=== PATIENT | female | born 1945 | race Caucasian/White ===

== ENCOUNTER → 2018-03-22 | Outpatient (CLI) | payer OTHER | LOC: BRMIMAGING 12:39 | PROVIDERS: ATTEND Internal Medicine | DX: Z13.820 Encounter for screening for osteoporosis (principal); M85.89 Other specified disorders of bone density and structure, multiple sites; Z78.0 Asymptomatic menopausal state ==

== ENCOUNTER → 2018-03-29 | Outpatient (CLI) | payer OTHER | LOC: BRMIMAGING 12:56 | PROVIDERS: ATTEND Internal Medicine | DX: Z12.31 Encounter for screening mammogram for malignant neoplasm of breast (principal) ==

== ENCOUNTER 2018-06-17 08:01 | Observation (INO) | payer OTHER ==
[2018-06-17] MEDS ORDERED: DIAZEPAM 5 MG TAB PO ONE (08:05)
[2018-06-17] MEDS ORDERED: diphenhydrAMINE 25 MG CAP PO ONE (08:05)
[2018-06-17] MEDS ORDERED: BACITRACIN IRRIGATION/NS 50,000 UNITS/1,000 ML BTL IRR ONE (08:05)
[2018-06-17] MEDS ORDERED: NS 1,000 ML IV ONE (08:05)
[2018-06-17] MEDS ORDERED: ceFAZolin 2 GM/DEXTROSE 100 ML IV ONE (08:05)
--- NOTE | 2018-06-17 08:24 | CPEKG ---
Heart Rate: 45 RR Interval: 1333 P-R Interval: 124 QRSD Interval: 92 QT Interval: 468 QTC Interval: 405 P [place]: -90 QRS [place]: 13 T Wave [place]: 51 EKG Severity - BORDERLINE ECG - EKG Impression: ECTOPIC ATRIAL BRADYCARDIA Electronically Signed By: Triny Gerber 17-Jun-2018 11:35:44
[2018-06-17 08:36] LABS: PLATELET COUNT 160 10^3/uL (150-400)
[2018-06-17 08:43] LABS: INR 0.99 (0.83-1.16); PROTIME(PATIENT) 13.3 SEC (12.0-15.0)
--- NOTE | 2018-06-17 09:22 | PDHPUP ---
History & Physical Update H&P update statement: This history and physical update is based on an assessment of the patient which was completed after admission or registration (within 24 hours), but prior to the surgery/procedure. H&P update: H&P reviewed & patient examined (for dual chamber pacemaker), no change in patient's condition since H&P completed
--- NOTE | 2018-06-17 09:24 | PDPROPOC ---
Sedation Plan of Care Sedation Plan of Care: vital signs stable, mental status noted, patient educated of risks, benefits, alternatives, patient can tolerate sedation ASA Classification: ASA 1 Planned drugs: fentanyl, midazolam Mallampati Score: Class 1 Mallampati Reference Image: Patient passed 3-3-2 rule?: Yes
[2018-06-17] MEDS ORDERED: MIDAZOLAM 2 MG/2 ML VIAL ONE ×3 (10:19→11:32)
[2018-06-17] MEDS ORDERED: LIDOCAINE 1% 300 MG/30 ML SDV ONE (10:19)
[2018-06-17] MEDS ORDERED: BUPIVACAINE 0.75% 10 ML SDV ONE (10:20)
[2018-06-17] MEDS ORDERED: fentaNYL 100 MCG/2 ML INJ ONE (10:20)
[2018-06-17] MEDS ORDERED: IOPAMIDOL (ISOVUE-300) 100 ML BTL ONE (10:20)
--- NOTE | 2018-06-17 11:58 | EPPROC ---
Electrophysiology Procedure Note: INDICATION: Symptomatic bradycardia PROCEDURE NOTE: Patient presented to the cardiac catheterization laboratory in a fasting, post absorptive state . EP RN administered sedation. The left infraclavicular area was prepped and draped in the usual sterile fashion. Lidocaine plus bupivacaine was used for local anesthesia. Left subclavian venography was performed by injection of iodinated contrast into the left antecubital vein. This was done to assure patency of the vein and also to assess for any anatomical aberrations. Using a combination of blunt and sharp dissection and electrocautery, the dissection was carried down to the prepectoral fascia. A pocket was made in this anatomical plane. All bleeding was controlled with electrocautery. The pocket was packed with gauze soaked in antibiotic solution. Fluoroscopy was utilized during the entire procedure for venous access and placement of the leads. Using a direct stick technique the left extrathoracic axillary vein was accessed with 2 sticks using the modified Seldinger technique. Placement of the guidewires into the venous system was confirmed by low-pressure blood return and also by visualizing the guidewires advancing into the inferior vena cava. A purse string suture was applied around the guidewires. Two #7 [place] sheaths were advanced under fluoroscopic guidance over the guidewire. An active fixation ventricular lead was advanced into the right ventricular apex and screwed in place. An active fixation atrial lead was advanced into the right atrial appendage and screwed in place. The peel away sheaths were removed. Pacing thresholds, sensing parameters and lead impedances were measured. There was no diaphragmatic stimulation at maximum output. The leads were sutured to the prepectoral fascia with 3 nonabsorbable sutures each. The pocket was again inspected for any bleeding. The leads were attached to the pacemaker securely. The pacemaker was inserted into the pocket and secured in place with a nonabsorbable suture. Fluoroscopy was performed in AMADO and BETI planes to verify right-sided placement of the leads. Also fluoroscopy of the pacemaker pocket was performed. The pacemaker pocket was closed in 3 layers with absorbable monocryl sutures and tamir. Appropriate dressing was applied. The patient left the cardiac catheterization laboratory in stable condition. Serial Numbers: 1. Device: SJM Assurity 2272 SN [id number] 2. Atrial Lead: SJM Tendril 46 SN [id number] 3. Ventricular Lead: SJM Tendril 52 SN [id number] Stimulation Thresholds & Impedance Measurements: 1. Atrial Lead P 1.6 mV 475 ohm 0.6 V 0.5 ms 2. Ventricular Lead R 17.7 mV 616 ohm 0.6 V 0.5 ms Casey Pacing Parameters 1. Pacing mode: DDDR 2. Lower rate: 60ppm 3. Upper tracking rate: 130 ppm 4. Upper sensor rate: 130 ppm Patient Problems: Problems Problem Status Onset Bradycardia Acute
--- NOTE | 2018-06-17 13:03 | CPEKG ---
Heart Rate: 60 RR Interval: 1000 P-R Interval: 176 QRSD Interval: 86 QT Interval: 440 QTC Interval: 440 QRS [place]: 17 T Wave [place]: -7 EKG Severity - ABNORMAL ECG - EKG Impression: ATRIAL-PACED RHYTHM EKG Impression: BORDERLINE T ABNORMALITIES, INFERIOR LEADS Electronically Signed By: Triny Gerber 17-Jun-2018 17:11:13
[2018-06-17] MEDS: ACETAMINOPHEN 325 MG TAB PO PRN ×2 (15:01→20:24)
[2018-06-18 04:59] LABS: PLATELET COUNT 145 10^3/uL (150-400)
[2018-06-18] MEDS ORDERED: amLODIPine BESYLATE 5 MG TAB PO SCH (09:00)
[2018-06-18] MEDS ORDERED: CHOLECALCIFEROL VIT D3 1,000 UNITS TAB PO SCH (09:00)
[2018-06-18] MEDS ORDERED: FLUoxetine 20 MG CAP PO SCH (09:00)
[2018-06-18] MEDS ORDERED: ASPIRIN 81 MG CHEWABLE TAB PO SCH (09:00)
[2018-06-18] MEDS ORDERED: ATORVASTATIN CALCIUM 20 MG TAB PO SCH (09:00)
--- NOTE | 2018-06-18 09:18 | CPEKG ---
Heart Rate: 63 RR Interval: 952 P-R Interval: 164 QRSD Interval: 82 QT Interval: 400 QTC Interval: 410 QRS [place]: 13 T Wave [place]: 17 EKG Severity - ABNORMAL ECG - EKG Impression: ATRIAL-PACED RHYTHM EKG Impression: BORDERLINE INFERIOR Q WAVES Electronically Signed By: Triny Gerber 18-Jun-2018 11:55:22
[2018-06-18 12:04] VITALS: BP 165/83
--- NOTE | 2018-06-18 14:53 | ASMTLACE ---
JENNIFER Acuity / Level of Answers: No Care: Did the patient have an inpatient admission? Comorbidities - select Answers: Other Notes: HTN; HLD all that apply # of Emergency department Answers: 0 visits in the last 6 months Social determinants Answers: Mental health diagnosis (anxiety, depression, pers onality disorders, etc.) Score: 4 Date Signed: 06/18/2018 01:15 PM Electronically Signed By:Karrie Balderrama RN
--- NOTE | 2018-06-18 14:53 | ASMTCMCOM ---
CM Note CM Note Notes: Chart reviewed. Patient medically cleared for discharge to home. No needs identified. CM available should needs arise. Plan: home with no services. Date Signed: 06/18/2018 01:20 PM Electronically Signed By:Karrie Balderrama RN
--- NOTE | 2018-06-18 16:02 | GDS ---
[f rep st] DISCHARGE SUMMARY ADMISSION DIAGNOSES: 1. Chronotropic incompetency. 2. Symptomatic bradycardia. 3. Hypertension. 4. Hyperlipidemia. DISCHARGE DIAGNOSES: 1. Symptomatic bradycardia. 2. Chronotropic incompetency. 3. Status post dual-chamber [facility] pacemaker implantation. 4. Hypertension. 5. Hyperlipidemia. PROCEDURES: Performed during hospitalization: 1. Electrocardiogram. 2. Permanent pacemaker implantation, [employer] device with right atrial and right ventricular [place] e lead implantation. 3. Chest x-ray. 4. Pacemaker interrogation. BRIEF HISTORY: Please see H and P: Ms. Serrano is a 73-year-old female who has been seen initially by her primary housing management representative, Dr. Melara, for evaluation of fatigue and chronotropic incompetence. She h ad recently underwent Holter monitoring, noticing a minimum heart rate of 37 beats per minute with av erage heart rate of 43 beats per minute. She was evaluated by Dr. Daly and felt to be an appropriate candidate to undergo permanent pacemaker implantation. HOSPITAL COURSE: Patient admitted through [facility], prepped for procedure, and taken to the Electrophysio logy Suite where Dr. Daly successfully implanted a dual-chamber [facility] [facility] pacemaker with right atrial a nd ventricular leads. No apparent complications. The patient was taken back to [facility] and ultimately t o the PCU for overnight observation. There she has been A paced with intrinsic ventricular response. She has had no chest pain or pressure symptoms suggesting ischemia. She has been up and walking th e unit without symptoms. She has been noted to be mildly hypertensive with systolic blood pressures up into the 160s. She does report her fatigue symptoms have improved significantly. PHYSICAL EXAMINATION: GENERAL: On exam done today, a short-statured, well-groomed, mildly obese [facility] female. She is alert and oriented to person, place, time, and situation and appears to be und er no acute distress. VITAL SIGNS: Current vital signs show a blood pressure of 165/83, heart rate of 65, A paced with intrinsic ventricular response, respirations 16, saturating 94% on room air, temp erature 36.9 degrees Celsius. HEENT: Head is normocephalic. Lips and tongue are pink and moist wit h no signs of cyanosis. Conjunctivae pink. NECK: Trachea is midline. +2 carotid pulses bilateral. No auscultated bruits, no jugular vein distention. RESPIRATORY: Lungs are clear to auscultation. No rhonchi, rales or wheezes. No accessory muscle use, no intercostal muscle retraction noted. CAR DIAC: Regular rate, regular rhythm, S1, S2, no S3, S4. No gallops, rubs or murmurs noted. ABDOMEN: Soft, nontender. Bowel sounds x4 quadrants. No organomegaly. No palpable masses. SKIN: [place], warm, dry. EXTREMITIES: No cyanosis, no clubbing, no peripheral edema. Pacemaker implantation site, left anterior chest, distal to clavicle incision intact with tamir. N o redness, swelling, drainage, ecchymosis or hematoma. Dressing change done at this time. LABORATORY STUDIES: Laboratory studies drawn today show WBC of 5.59, hemoglobin 15.4, hematocrit 44. 9, platelet count 145. Sodium 139, potassium 4.8, chloride 105, CO2 24, BUN 12, creatinine 0.6, gluc ose 81, calcium 8.5. STUDIES: Pacemaker implantation as mentioned above. Chest x-ray done this morning showing no acute cardiopulmonary process. No delayed pneumothorax. Device interrogation by [facility] [facility] rep showing device functioning within normal limits. Electrocardiogram done this morning showing A paced with intrinsic rhythm. Noted Q-waves in lead III . No significant ST or T wave abnormalities. DISCHARGE DISPOSITION: Patient will be discharged home in stable condition. She is under activity r estriction, not lifting left arm higher than head or lifting more than 10 pounds with the left arm fo r the next 6 weeks. DISCHARGE MEDICATIONS: Please see discharge medication reconciliation sheet. Note, upon discharge I have increased her amlodipine to 10 mg p.o. daily due to her elevated blood pressure. She has been asked to continue to keep a home BP log, monitor blood pressure on a daily basis, and bring it back t o her next office visit with Dr. Melara. No change to the rest of her home medications. DISCHARGE INSTRUCTIONS: Post pacemaker implantation discharge instructions. Went over with the daniel ent and her , including monitoring for signs of infection, bleeding precautions, activity rest rictions, and medication compliance. The patient does have a device and wound check scheduled in 1 w alutiiq's time, and will follow up with Dr. Daly in 1 month. At the time of discharge, both patient and sylvia monzonband verbalized understanding of all instructions and have no questions or concerns. The patient h as been told that if any problems or concerns post discharge, they are to notify our office or return to the hospital. Total time spent on discharge, greater than 30 minutes. /[id number]/MODL
[2018-06-19] MEDS ORDERED: VALSARTAN 80 MG TAB PO SCH (09:00)
== END 2018-06-18 14:22 | disposition home or self-care (01) ==
LOC: FCATH 08:01 → F2W 11:58
PROVIDERS: ADMIT Internal Medicine Cardiovascular Disease; ATTEND Internal Medicine Cardiovascular Disease
PROC: 0JH606Z Insertion of Pacemaker, Dual Chamber into Chest Subcutaneous Tissue and Fascia, Open Approach (ICD-10-PCS; principal; 2018-06-17)
PROC: 02H63JZ Insertion of Pacemaker Lead into Right Atrium, Percutaneous Approach (ICD-10-PCS; principal; 2018-06-17)
PROC: 02HK3JZ Insertion of Pacemaker Lead into Right Ventricle, Percutaneous Approach (ICD-10-PCS; principal; 2018-06-17)
DX: I49.5 Sick sinus syndrome (principal); I45.89 Other specified conduction disorders; I10 Essential (primary) hypertension; E78.5 Hyperlipidemia, unspecified
CPT/HCPCS: 33208; 71045; 71046; 93005; C1785; C1898; G0378; J0690; J2250; J3010; Q9967

== ENCOUNTER 2019-01-08 06:48 | Day surgery (SDC) | payer OTHER ==
[2019-01-08] MEDS ORDERED: NS 1,000 ML IV ONE (06:50)
[2019-01-08 07:28] LABS: PLATELET COUNT 182 10^3/uL (150-400)
[2019-01-08 07:45] LABS: INR 0.95 (0.83-1.16); PROTIME(PATIENT) 12.9 SEC (12.0-15.0)
--- NOTE | 2019-01-08 07:48 | CPEKG ---
Test Reason : OPEN Blood Pressure : / mmHG Vent. Rate : 060 BPM Atrial Rate : 060 BPM P-R Int : 157 ms QRS Dur : 085 ms QT Int : 399 ms P-R-T Axes : 086 025 052 degrees QTc Int : 399 ms Atrial-paced rhythm Confirmed by Caleb Pan ([id number]) on 01/08/2019 7:47:46 AM Referred By: Son Daly Confirmed By:Caleb Pan
[2019-01-08] MEDS ORDERED: BUPIVACAINE 0.75% 10 ML SDV ONE (07:56)
[2019-01-08] MEDS ORDERED: LIDOCAINE 1% 300 MG/30 ML SDV ONE (07:56)
[2019-01-08] MEDS ORDERED: ISOPROTERENOL HCL/D5W 0.2 MG/50 ML BAG IV ONE (07:56)
[2019-01-08] MEDS ORDERED: HEPARIN 10,000 UNIT/10 ML MDV (1,000 UNIT/ML) ONE (07:58)
--- NOTE | 2019-01-08 08:08 | PDANEPAE ---
ANE History of Present Illness History of NSVT, BiV pacemaker in 04/2018 ANE Past Medical History - Cardiovascular History Hx Hypertension: Yes Hx Arrhythmias: Yes Hx Chest Pain: No Hx Coronary Artery / Peripheral Vascular Disease: No Hx CHF / Valvular Disease: No Hx Palpitations: Yes - Pulmonary History Hx COPD: No Hx Asthma/Reactive Airway Disease: No Hx Recent Upper Respiratory Infection: No Hx Oxygen in Use at Home: No Hx Sleep Apnea: No - Endocrine History Hx Diabetes: No Hypothyroid: No Hyperthyroid: No Obesity: moderate - Renal History Hx Renal Disorders: No - Liver History Hx Hepatic Disorders: No - Neurological & Psychiatric Hx Hx Neurological and Psychiatric Disorders: No - Cancer History Hx Cancer: No - Congenital Disorder History Hx Congenital Disorders: No - GI History GERD: no Hx Gastrointestinal Disorders: No - Chronic Pain History Chronic Pain: No ANE Review of Systems Review of systems is: negative Review of Systems: - Exercise capacity Exercise capacity: >=4 METS ANE Patient History - Allergies Allergies/Adverse Reactions: Sulfa (Sulfonamide Antibiotics) Allergy (Verified 06/13/18 11:04) Vomiting - Home Medications Home Medications: Aspirin [Aspirin 81mg (*)] 81 mg PO DAILY18 06/13/18 [Last Taken Unknown] Atorvastatin Calcium [Lipitor 20 mg (*)] 20 mg PO DAILY 06/13/18 [Last Taken Unknown] Cholecalciferol Vit D3 [Vitamin D3 (*)] 1,000 units PO DAILY18 06/13/18 [Last Taken Unknown] FLUoxetine [Prozac 20 MG (*)] 20 mg PO DAILY 06/13/18 [Last Taken Unknown] Herbals/Supplements -Info Only 1 ea PO AD 06/13/18 [Last Taken Unknown] Multivitamins [Multivitamin (*)] 1 each PO DAILY 06/13/18 [Last Taken Unknown] Vitamin B Complex [Vitamin B Complex (OTC)] 1 each PO DAILY18 06/13/18 [Last Taken Unknown] Ascorbic Acid [Vitamin C 250 mg (*)] 250 mg PO DAILY 01/02/19 [Last Taken Unknown] Calcium Carbonate [Oyster Shell Calcium 500 mg (*)] 500 mg PO DAILY18 01/02/19 [ Last Taken Unknown] Losartan Potassium [Cozaar 50 mg (*)] 50 mg PO DAILY 01/02/19 [Last Taken Unknown] - NPO status NPO Status: no food or drink >8 hours - Anes Hx Anes Hx: no prior problems - Smoking Hx Smoking Status: Former smoker - Alcohol Use Alcohol Use: None - Family Anes Hx Family Anes Hx: none ANE Labs/Vital Signs - Labs Result Diagrams: 01/08/19 07:00 01/08/19 07:00 - Vital Signs Vital Signs: reviewed preoperatively; see RN documention for details Height: 160.02 cm Weight: 88.451 kg ANE Physical Exam - Airway Neck exam: FROM Mallampati Score: Class 2 Mouth exam: normal dental/mouth exam - Pulmonary Pulmonary: no respiratory distress - Cardiovascular Cardiovascular: regular rate and rhythym - ASA Status ASA Status: III ANE Anesthesia Plan Anesthesia Plan: MAC
[2019-01-08] MEDS ORDERED: ceFAZolin 2 GM/DEXTROSE 100 ML IV ONE (08:33)
[2019-01-08] MEDS ORDERED: BACITRACIN IRRIGATION/NS 50,000 UNITS/1,000 ML BTL IRR ONE (08:33)
[2019-01-08] MEDS ORDERED: fentaNYL 100 MCG/2 ML INJ ONE (08:38)
[2019-01-08] MEDS ORDERED: PROPOFOL/EMULSION 500 MG/50 ML BOTTLE IV ONE (08:38)
--- NOTE | 2019-01-08 08:48 | PDGENHP ---
History & Physical Chief Complaint: vt on pm check Relevant Physical Exam: s1s2 rrr cta ao3 Cardiorespiratory Assessment: for eps
--- NOTE | 2019-01-08 10:11 | EPPROC ---
Electrophysiology Procedure Note: NON INVASIVE PROGRAMMED STIMULATION INDICATION VT seen on pacemaker check PROCEDURE PERFORMED 37.20 Non-invasive programmed electrical stimulation [NIPS] 37738-11 Programmed stimulation + pacing after IV drug Reprogramming of dual chamber pacemaker The patient arrived in the Electrophysiology Laboratory in the fasting state. Appropriate non-invasive blood pressure, pulse oximetry and end-tidal CO2 monitoring was established. Anesthesiologist administered propofol sedation. Defibrillator hands free patches were attached to the anterolateral chest wall and attached to the defibrillator. Programmed stimulation from the RV pacemaker lead using standard protocol (2 CL , 3 extrastimuli, +/- isoproterenol) did not induce any sustained arrhythmias. Nonsustained atrial tachycardia, CL 320 ms was induced x 3, longest duration 15 seconds. Patient Problems: Problems Problem Status Onset Bradycardia Acute
[2019-01-08] MEDS ORDERED: NALOXONE HCL 0.4 MG/ML INJ IVP PRN (10:22)
--- NOTE | 2019-01-08 10:22 | POSTANESTH ---
Post Anesthetic Evaluation Cardiovascular Status: Normal, Stable Respiratory Status: Normal, Stable Level of Consciousness/Mental Status: Can Participate in Eval Pain Control: Adequate, Prn Tx Ordered Nausea/Vomiting Control: Adequate, Prn Tx Ordered Complications Possibly Related to Anesthesia: None Noted
[2019-01-08] MEDS ORDERED: METOPROLOL TARTRATE 25 MG TAB PO SCH (21:00)
== END 2019-01-08 12:03 | disposition home or self-care (01) ==
LOC: FCATH 06:48
PROVIDERS: ATTEND Internal Medicine Cardiovascular Disease
DX: I47.2 Ventricular tachycardia (principal); I49.5 Sick sinus syndrome; I49.8 Other specified cardiac arrhythmias; I10 Essential (primary) hypertension; E78.5 Hyperlipidemia, unspecified; Z87.891 Personal history of nicotine dependence; Z82.49 Family history of ischemic heart disease and other diseases of the circulatory system; Z95.0 Presence of cardiac pacemaker; Z88.2 Allergy status to sulfonamides
CPT/HCPCS: J0690; J1644; J2704; J3010

== ENCOUNTER → 2019-05-07 | Outpatient (CLI) | payer OTHER | LOC: FIMAGING 09:37 ==

== ENCOUNTER → 2019-05-12 | Outpatient (CLI) | payer OTHER | LOC: CIMAGING 07:29 ==